=== PATIENT | female | born 1960 | race Hispanic/Latino ===

== ENCOUNTER 2023-06-13 06:08 | Day surgery (SDC) | payer MEDICARE ==
[2023-06-11 13:26] VITALS: BP 130/76; PULSE 69; RESP 18
[2023-06-11 13:27] LABS: BASOPHILS # (AUTO) 0.01 K/uL (0.00-0.20); BASOPHILS % (AUTO) 0.1 % (0.0-5.0); EOSINOPHILS # (AUTO) 0.02 K/uL (0.00-0.70); EOSINOPHILS % (AUTO) 0.3 % (0.0-8.0); HEMATOCRIT 40.7 % (36-48); IMMATURE GRANULOCYTE ABSOLUTE 0.02 K/uL (0-1); LYMPHOCYTES # (AUTO) 1.3 K/uL (1.0-4.8); LYMPHOCYTES % (AUTO) 18.2 % (21.0-51.0); MEAN CORPUSCULAR HEMOGLOBIN 33.2 pg (27.0-33.0); MEAN CORPUSCULAR HGB CONC 33.4 g/dL (32.0-36.0); MEAN CORPUSCULAR VOLUME 99.3 fL (79-99); MONOCYTES # (AUTO) 0.7 K/uL (0.1-1.0); MONOCYTES % (AUTO) 10.2 % (3.0-13.0); NEUTROPHILS # (AUTO) 4.9 K/uL (1.8-7.7); NEUTROPHILS % (AUTO) 70.9 % (40.0-77.0); PLATELET COUNT (AUTO) 257 K/uL (130-400); RED CELL DISTRIBUTION WIDTH 14.4 % (11.0-15.5); WHITE BLOOD COUNT (AUTO) 6.9 K/uL (4.8-10.8)
[2023-06-11 13:36] LABS: CREATININE 0.8 mg/dL (0.5-1.5); POTASSIUM 3.9 mmol/L (3.5-5.1)
[~2023-06-13] VITALS: Ht 160 cm; Wt 101.8 kg
[2023-06-13] VITALS (20 sets, daily range): BP systolic 111–146; BP diastolic 72–85; PULSE 58–77; RESP 13–17
[~2023-06-13 06:08] MED LIST: CYAN250010 PO; ESCI-8 PO; ESTRIOL/ESTRADIOL TP; PROG100C11 PO
[2023-06-13] MEDS ORDERED: LACTATED RINGERS 1000ML 1,000 ML IV ONE (06:44)
[2023-06-13] MEDS ORDERED: ONDANSETRON 4MG INJ ONE (06:45)
[2023-06-13] MEDS ORDERED: DEXAMETHASONE SOD PHOSPHATE 10MG/ML 1ML VIAL ONE (06:45)
[2023-06-13] MEDS ORDERED: LIDOCAINE PF 100MG/5ML (2%) SYRINGE 5ML ONE ×2 (06:45→08:27)
[2023-06-13] MEDS ORDERED: PROPOFOL 10 MG/ML 20ML VIAL IV ONE (06:45)
[2023-06-13] MEDS ORDERED: MIDAZOLAM HCL 1 MG/ML 2ML VIAL ONE (06:46)
[2023-06-13] MEDS ORDERED: FENTANYL CITRATE PF 50 MCG/1 ML 2ML VIAL ONE (06:46)
[2023-06-13] MEDS: CEFAZOLIN SODIUM 2 GM VIAL ONE ×2 (06:51→07:40)
[2023-06-13] MEDS ORDERED: HYDROCODONE/ACETAMINOPHEN 10/325 MG TAB PO PRN (08:00)
[2023-06-13] MEDS ORDERED: BUPIVACAINE/PF 0.25% 30ML VIAL IJ ONE (08:01)
[2023-06-13] MEDS ORDERED: KETOROLAC 30MG VIAL (30MG/ML) ONE (09:09)
[2023-06-13] MEDS ORDERED: MEPERIDINE-PF 25 MG/ML SYG ONE (09:15)
== END 2023-06-13 10:40 | disposition home or self-care (01) ==
LOC: DAH 06:08
PROVIDERS: ATTEND Orthopaedic Surgery
DX: M70.22 Olecranon bursitis, left elbow (principal); Z20.822 Contact with and (suspected) exposure to COVID-19; E66.01 Morbid (severe) obesity due to excess calories; K21.9 Gastro-esophageal reflux disease without esophagitis; F17.200 Nicotine dependence, unspecified, uncomplicated; Z72.89 Other problems related to lifestyle; Z90.710 Acquired absence of both cervix and uterus; Z98.891 History of uterine scar from previous surgery; Z80.3 Family history of malignant neoplasm of breast; Z83.3 Family history of diabetes mellitus; Z68.41 Body mass index [BMI] 40.0-44.9, adult
CPT/HCPCS: 80048; 85025; 36415; 93005; 24105; 88311; 88304; A6260; A4663; A4606; J7120; J3010; J1100; J3490; J2001 ×2; J2250; J2704; J2405; J1885; J2175; J0690; A6223; A6446; A4649 ×2; A5120; A4215; A4223; A4222; A4221